=== PATIENT | male | born 1975 | race Hispanic/Latino ===

== ENCOUNTER 2018-08-22 19:44 | Emergency (ER) | payer BC ==
[~2018-08-22] VITALS: Ht 167.6 cm; Wt 101.0 kg
[~2018-08-22 19:44] MED LIST: NAPROSYN500 MG PO
[2018-08-22 20:28] LABS: IMMATURE GRANULOCYTES 0.3 % (0.0-5.0); MEAN CELL VOLUME 82.9 fL CALC (80.0-100.0); MEAN CORPUSCULAR HGB 26.6 pG CALC (26.0-32.0); NEUT# 5.45 thou/uL (1.82-7.42); RED BLOOD COUNT 5.31 mill/uL (4.70-6.10); RED CELL DISTRI WIDTH 15.6 % (11.5-15.5)
[2018-08-22 20:31] LABS: HEMOGLOBIN 14.1 g/dl (14.0-18.0)
[2018-08-22 20:32] LABS: URINE BILIRUBIN - DIPSTICK NEGATIVE (NEGATIVE); URINE BLOOD DIPSTICK LARGE (NEGATIVE); URINE GLUCOSE - DIPSTICK NEGATIVE (NEGATIVE); URINE KETONE NEGATIVE (NEGATIVE); URINE LEUK ESTERASE NEGATIVE (NEGATIVE); URINE NITRITE - DIPSTICK NEGATIVE (Negative); URINE PH 6.5 (4.5-8.0); URINE PROTEIN - DIPSTICK 30 mg/dL (NEG-TRACE); URINE SPECIFIC GRAVITY >=1.030
[2018-08-22 20:33] LABS: URINE COLOR AMBER
[2018-08-22 20:40] LABS: URINE RBC >100 RBC/hpf (0-5)
[2018-08-22 20:44] LABS: ALBUMIN 4.4 g/dL (3.2-5.0); ALKALINE PHOSPHATASE 150 u/l (38-126); AMYLASE 69 u/l (30-110); ANION GAP 18 (6-22 (CALC)); BILIRUBIN, TOTAL 0.4 mg/dL (0.0-1.4); BUN 18 mg/dL (9-20); BUN/CREATININE RATIO 14 (12-20 (CALC)); CARBON DIOXIDE 27 mmol/l (22-30); CHLORIDE 100 mmol/l (95-108); CREATININE 1.3 mg/dL (0.7-1.3); GFR 60 ML/MIN (>=60 (CALC)); GFR FOR AFR.AMER. > 60 ML/MIN (>=60 (CALC)); LIPASE 299 u/l (23-300); POTASSIUM 4.4 mmol/l (3.5-5.1); SGOT/AST 30 u/l (17-59); SODIUM 141 mmol/l (137-146); TOTAL PROTEIN 7.3 g/dL (6.3-8.2)
[2018-08-22] MEDS ORDERED: LORTAB 1010 MG PO (22:00)
[2018-08-22] MEDS ORDERED: TAMSULOSIN0.4 MG PO (22:00)
[2018-08-22 22:20] VITALS: BP 142/68
[2018-08-23] MEDS ORDERED: MOTRIN400 MG PO (15:09)
[2018-08-23] MEDS ORDERED: CEPHALEXIN500 M1 PO (15:11)
== END 2018-08-22 22:22 | disposition home or self-care (01) | DRG 694 ==
LOC: ED 19:44
PROVIDERS: Emergency Medicine
DX: N20.0 Calculus of kidney (principal); F17.210 Nicotine dependence, cigarettes, uncomplicated
CPT/HCPCS: Q9967

== ENCOUNTER 2018-08-23 14:35 | Emergency (ER) | payer BC ==
[~2018-08-23] VITALS: Ht 167.6 cm; Wt 101.0 kg
[~2018-08-23 14:35] MED LIST changes: +LORTAB 1010 MG PO; +TAMSULOSIN0.4 MG PO
[2018-08-23] MEDS ORDERED: MOTRIN400 MG PO (15:09)
[2018-08-23] MEDS ORDERED: CEPHALEXIN500 M1 PO (15:11)
[2018-08-23 15:38] VITALS: BP 125/80
== END 2018-08-23 15:35 | disposition home or self-care (01) | DRG 694 ==
LOC: ED 14:35
DX: N20.1 Calculus of ureter (principal); F17.200 Nicotine dependence, unspecified, uncomplicated

== ENCOUNTER 2019-04-03 | Emergency (ER) | payer BC ==
[~2019-04-03] MED LIST changes: +CEPHALEXIN500 M1 PO; +MOTRIN400 MG PO
[2019-04-03 06:30] LABS: HEMATOCRIT 44.7 % (39.0-50.0); HEMOGLOBIN 14.1 g/dl (14.0-18.0); IMMATURE GRANULOCYTES 0.5 % (0.0-5.0); MEAN CELL VOLUME 82.9 fL CALC (80.0-100.0); MEAN CORPUSCULAR HGB 26.2 pG CALC (26.0-32.0); MEAN CORPUSCULAR HGB CONC 31.5 g/L CALC (32.0-36.0); NEUT# 7.59 thou/uL (1.82-7.42); RED BLOOD COUNT 5.39 mill/uL (4.70-6.10); RED CELL DISTRI WIDTH 15.6 % (11.5-15.5)
[2019-04-03 07:16] LABS: ALBUMIN 4.4 g/dL (3.2-5.0); ALKALINE PHOSPHATASE 120 u/l (38-126); AMYLASE 115 u/l (30-110); ANION GAP 13 (6-22 (CALC)); BUN 15 mg/dL (9-20); BUN/CREATININE RATIO 22 (12-20 (CALC)); CARBON DIOXIDE 26 mmol/l (22-30); CHLORIDE 102 mmol/l (95-108); CREATININE 0.7 mg/dL (0.7-1.3); GFR > 60 ML/MIN (>=60 (CALC)); GFR FOR AFR.AMER. > 60 ML/MIN (>=60 (CALC)); LIPASE 505 u/l (23-300); SGOT/AST 25 u/l (17-59); SODIUM 137 mmol/l (137-146); TOTAL PROTEIN 7.6 g/dL (6.3-8.2)
[2019-04-03 07:22] LABS: BILIRUBIN, TOTAL 0.8 mg/dL (0.0-1.4)
[2019-04-03 08:36] LABS: MYOGLOBIN 27 ng/mL (0 - 121)
[2019-04-03] MEDS ORDERED: ZPAK PO (08:49)
[2019-04-03] MEDS ORDERED: AMOX/K CLAV875 M1 PO (08:49)
== END 2019-04-03 09:05 | disposition home or self-care (01) | DRG 195 ==
PROVIDERS: Emergency Medicine
DX: J18.9 Pneumonia, unspecified organism (principal); R79.89 Other specified abnormal findings of blood chemistry; F17.200 Nicotine dependence, unspecified, uncomplicated

== ENCOUNTER 2020-12-25 09:14 | Emergency (ER) | payer BC ==
[~2020-12-25] VITALS: Ht 167.6 cm; Wt 79.0 kg
[~2020-12-25 09:14] MED LIST changes: +AMOX/K CLAV875 M1 PO; +ZPAK PO
[2020-12-25] MEDS ORDERED: DECADRON4 MG PO (11:13)
[2020-12-25] MEDS ORDERED: MOTRIN400 MG/TAB PO (11:13)
[2020-12-25] MEDS ORDERED: TRAMADOL HYDROC50 M1 PO (11:13)
[2020-12-25] MEDS ORDERED: FLEXERIL5 M1 PO (11:13)
[2020-12-25 11:19] VITALS: BP 130/79
== END 2020-12-25 11:26 | disposition home or self-care (01) | DRG 552 ==
LOC: ED 09:14
DX: M51.16 Intervertebral disc disorders with radiculopathy, lumbar region (principal); F17.200 Nicotine dependence, unspecified, uncomplicated

== ENCOUNTER 2022-09-06 08:00 | Emergency (ER) | payer OTHER ==
[~2022-09-06] VITALS: Ht 167.6 cm; Wt 90.0 kg
[2022-09-06] VITALS (9 sets, daily range): BP systolic 119–138; BP diastolic 71–81
[~2022-09-06 08:00] MED LIST changes: +DECADRON4 MG PO; +FLEXERIL5 M1 PO; +MOTRIN400 MG/TAB PO; +TRAMADOL HYDROC50 M1 PO
[2022-09-06] MEDS ORDERED: AMOX/K CLAV875 M1 PO (10:05)
== END 2022-09-06 10:38 | disposition home or self-care (01) | DRG 153 ==
LOC: ED 08:00
DX: J32.9 Chronic sinusitis, unspecified (principal); F17.200 Nicotine dependence, unspecified, uncomplicated; Z20.822 Contact with and (suspected) exposure to COVID-19

== ENCOUNTER 2022-12-27 11:25 | Emergency (ER) | payer OTHER ==
[~2022-12-27] VITALS: Ht 167.6 cm; Wt 92.2 kg
[2022-12-27] MEDS ORDERED: PREDNISONE10 MG PO (15:52)
[2022-12-27] MEDS ORDERED: METHOCARBAMOL500 MG PO (15:52)
[2022-12-27] MEDS ORDERED: NAPROXEN500 MG PO (15:52)
[2022-12-27 16:42] VITALS: BP 128/68
== END 2022-12-27 16:52 | disposition home or self-care (01) ==
LOC: ED 11:25
DX: M47.26 Other spondylosis with radiculopathy, lumbar region (principal); F17.200 Nicotine dependence, unspecified, uncomplicated